=== PATIENT | male | born 1975 | race Caucasian/White ===

== ENCOUNTER 2017-01-08 20:01 | Emergency (ER) | payer MEDICAID ==
[~2017-01-08] VITALS: Ht 170.2 cm; Wt 95.7 kg
--- NOTE | 2017-01-08 20:18 | NUR ---
Pt walked into ER c/o on and off cough [id number]. Here for worsening cough and coughing up white phelm
--- NOTE | 2017-01-08 20:38 | NUR ---
Patient discharged to home in stable conditon. Written and verbal after care instructions given. Patient verbalizes understanding of instructions. Walked out of ER with no distress noted
[2017-01-08 20:40] VITALS: BP 138/100
== END 2017-01-08 20:41 | disposition home or self-care (01) ==
LOC: ER 20:11
DX: J06.9 Acute upper respiratory infection, unspecified (principal); F17.210 Nicotine dependence, cigarettes, uncomplicated
CPT/HCPCS: 71010; 93005; A4663